=== PATIENT | male | born 2000 | race African-American/Black ===

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

== ENCOUNTER 2019-10-18 16:50 | Emergency (ER) | payer OTHER ==
[~2019-10-18] VITALS: Ht 180.3 cm; Wt 74.4 kg
[2019-10-18 17:05] VITALS: BP 147/74; Ht 180.3 cm; Wt 74.4 kg
== END 2019-10-18 17:47 | disposition home or self-care (01) ==
LOC: ED 16:50
DX: N34.2 Other urethritis (principal)
CPT/HCPCS: 87491; 87591; J0696